=== PATIENT | female | born 1950 | race Caucasian/White ===

== ENCOUNTER 2023-08-08 08:20 | Day surgery (SDC) | payer OTHER, SELFPAY ==
[2023-07-18 13:08] VITALS: BMI 26.8
[2023-07-18 13:21] LABS: % Basophils 0.4 % (0-2); % Eosinophils 0.7 % (0-6); % Immature Granulocytes 0.2 % (0-0.5); % Lymphocytes 22.9 % (20.5-51.1); % Monocytes 6.8 % (1.7-9.3); Absolute Eosinophils 0.1 10^3/uL (0-0.7); Absolute Lymphocytes 1.9 10^3/uL (1.2-3.4); Absolute Monocytes 0.6 10^3/uL (0.1-0.6); Absolute Neutrophils 5.6 10^3/uL (1.4-6.5); Hematocrit 41.5 % (37.0-47.0); Hemoglobin 14.1 g/dL (12.0-16.0); Mean Corpuscular Hgb 31.9 pg (27.0-31.0); Mean Corpuscular Volume 93.9 fL (81.0-99.0); Mean Platelet Volume 9.4 fL (7.4-10.4); Nucleated Red Blood Cells % 0 %; Platelet Count 241 10^3/uL (130-400); Red Blood Cell Count 4.42 10^6/uL (4.20-5.40); Red Cell Dist. Width 12.3 % (11.5-14.5); White Blood Cell Count 8.1 10^3/uL (4.8-10.8)
[2023-07-18 13:34] LABS: ALT (SGPT) 23 U/L (0-35); AST (SGOT) 27 U/L (14-36); Albumin 4.6 g/dl (3.5-5.0); Alkaline Phosphatase 82 U/L (38-126); Blood Urea Nitrogen 14 mg/dl (7-17); Calcium 9.6 mg/dl (8.4-10.2); Carbon Dioxide 27 mmol/L (22-30); Chloride 105 mmol/L (98-107); Estimated Creatinine Clearance 73 ml/min; Glucose 99 mg/dl (70-99); Potassium 4.7 mmol/L (3.5-5.1); Sodium 138 mmol/L (135-145); Total Bilirubin 0.9 mg/dl (0.2-1.3); Total Protein 6.9 g/dl (6.3-8.2); eGFR > 60.00
[2023-08-08 08:20] VITALS: BP 140/74
[2023-08-08 08:40] VITALS: BP 140/74
[2023-08-08 09:07] LABS: Glucose - Point of Care 133 mg/dl (70-99)
--- NOTE | 2023-08-08 11:47 | W.ICD.CONTRA ---
Post ICD/HAND EDGE BANDER-D
-
History of MN?: No
LV Function
Left ventricular function study result?: Ejection Fraction >/= 40%
ACEI/ARB/ARNI
Patient already on ACEI/ARB/ARNI: No
ACEI/ARB/ARNI Not Indicated: Left Ventricular EF >/= 40%
Beta-Eva
Patient already on Beta Eva: Yes
--- NOTE | 2023-08-08 12:53 | ITS.CL.ICD ---
M[employer]gage [employer] Specialist - ICD
Implantable Cardioverter Defibrillator
Procedure Report:
Dual Chamber Implantable Cardioverter Defibrillator Generator Change:
Ms. Pete is a very pleasant 73 years old woman with hx of VT s/p a dual chamber ICD at the end of battery life is here for generator change.
Indications: Ventricular tachycardia s/p dual chamber ICD now with elective replacement indicator
Date of the Procedure: 08/08/2023
Pre-Operative Diagnosis: Ventricular tachycardia
Post-Operative Diagnosis: Ventricular tachycardia
Procedure Performed: DUAL CHAMBER IMPLANTABLE CARDIOVERTER DEFIBRILLATOR GENERATOR CHANGE
Performing Physician:
J Luis Burns MD
Assistants:
EP staff
Anesthesia:
See anesthesia records
Detailed Description of the Procedure:
The patient was identified using hospital identification and informed consent obtained for the procedure. The risks were explained including, but not limited to: Bleeding, infection, arrhythmia, stroke, vascular/cardiac/lung puncture, surgery,
pacemaker dependency/device malfunction. All questions were answered.
The patient was brought to the electrophysiology laboratory in stable condition in fasting state. Continuous electrocardiographic and hemodynamic monitoring was initiated.
The initial rhythm was normal sinus rhythm. The device tachy-therapies were turned off.
The procedure site was meticulously prepared with surgical scrub and allowed to dry with no pooling. Sterile draping was applied to cover the procedure site. The image intensifier was draped with sterile bag and positioned over the patient.
The left infraclavicular region was prepped and draped in the usual sterile fashion. Local anesthesia was administered subcutaneously using 1% lidocaine / bupivacaine. The incision was made on the previous scar. The old ICD generator was accessed
and the adhesions were removed with care to avoid damage to the leads. The ICD capsule was cut to access the generator. The old device was attached to the underlying fascia with a suture and the suture was cut to free the device. It was removed from
the body. The Weitlaner retractor was placed in the incision and used as access to skin for unipolar pacing.
The old PPM pacing lead was used for pacing and plugged into the generator. It was removed and promptly used for pacing via unipolar fashion.
The leads were gradually removed and placed in the respective locations in the newer generator.
The ICD lead was then placed in the new generator without any significant pause noted.
The old pocket and capsule was modified and the excessive scar was removed. A TYRX absorbable antibacterial envelope was used and the device was placed in the pouch with leads and placed in the modified pocket. There was excellent sensing, pacing,
and impedance from the leads.�Bovie cautery, and antibiotics were used.
The wound was irrigated thoroughly with antibiotic solution and closed in 3 layers using 2-0, VLoc sutures followed by two layers of 4-0 V loc sutures. Steri-Strips and a bandage were applied externally.�
The device was turned back on to initial setting.
Procedure End:
The procedure was tolerated well. A bandage was applied to the incision area.
Estimated Blood loss:
1 cc
Fluoro time:
0 min
Specimens Removed:
No cultures and no specimens were obtained. No intraoperative pathology was identified.
Urine output:
None
Packs / Drains/ Tubes:
None
Instrument / Sponge Count Correct:
Yes
Complications of the Procedure:
None
Condition of Patient at Time of Transfer:
Hemodynamically stable with no neurological or vascular compromise.
Device information:�
Generator: Sentrix; Model: [id number]; Serial #[id number]
Explanted device: [id number]- [id number]: Serial # [id number]�
Atrial Lead: Medtronic; Model: 5554; Serial # [id number] (Implanted 05/05/1998)�
Measured data in the right atrium was sensing of 1.3 mV of AF waves, impedance of 800 ohms and threshold of 1.0 V at 0.4ms�
RV Lead: Medtronic; Model: 6944; Serial # [id number] (Implanted 06/09/2013)�
Measured data in the RV lead was sensing of 11.7 mV, impedance of 460ohms and threshold of 1.0 V at 0.4ms�
PROGRAMMING PARAMETERS:�
Jam parameter settings were DDD 60-110 bpm. �
�����������
Tachy parameter settings:
����������� SVT discrimination: On
����������� AF/AFl: On
����������� SVT limit: 260 msec
����������� VT zone:
����������������������� Fast VT: 181-222 bpm --> ATP then CV
����������������������� VF: > 222bpm --> Shock x6 (ATP before and during)
�����������
Summary:
Successful generator change of dual chamber [place] /[employer] ICD pacemaker
Results/Recommendations:
1. Please provide patient with adequate pain control�
Instructions to be given to patient:�
- Please follow up with [facility] at [address] [place] [address] ([phone]) to get your wound checked within 7 days of your discharge.
- Do not wet incision site until after it is evaluated at cardiology clinic. No showers until then. Sponge baths are OK.�
- Allow 'steri strips' to fall off on their own�
- Do not lift left elbow above shoulder, particularly with sudden jerking movements, for 1 month�
- Do not lift anything weighing more than 5 pounds with the left arm for 1 month�
- If you notice any fevers, shortness of breath, lightheadedness, chest pain, or worsening swelling in the wound site, please contact the arrhythmia clinic, contact your barn boss, or present to the hospital for evaluation.�
J Luis Burns MD
Electrophysiology
[2023-08-08 13:08] VITALS: BP 119/64
[2023-08-08 13:20] VITALS: BP 131/74
[2023-08-08 13:36] VITALS: BP 144/98
[2023-08-08 13:50] VITALS: BP 116/64
== END 2023-08-08 14:00 | disposition home or self-care (01) ==
LOC: CATH 08:20
PROVIDERS: ATTENDING PHYSICIAN Internal Medicine Cardiovascular Disease; FAMILY PHYSICIAN Family Medicine
DX: Z45.02 Encounter for adjustment and management of automatic implantable cardiac defibrillator (principal); I47.20 Ventricular tachycardia, unspecified; I10 Essential (primary) hypertension; E78.5 Hyperlipidemia, unspecified; G47.33 Obstructive sleep apnea (adult) (pediatric); E11.9 Type 2 diabetes mellitus without complications; F90.9 Attention-deficit hyperactivity disorder, unspecified type; Z79.84 Long term (current) use of oral hypoglycemic drugs
CPT/HCPCS: 33263; 33228; 36415; 80053; 82962; 85025; 93005; C1721

== ENCOUNTER → 2024-07-28 14:25 | Outpatient (REF) | payer OTHER, SELFPAY | LOC: HWRAD 14:25 | PROVIDERS: ATTENDING PHYSICIAN Urology; FAMILY PHYSICIAN Family Medicine | DX: N20.0 Calculus of kidney (principal) | CPT/HCPCS: 74176 ==

== ENCOUNTER → 2024-11-09 08:08 | Outpatient (REF) | payer OTHER, SELFPAY | LOC: HWRAD 08:08 | PROVIDERS: ATTENDING PHYSICIAN Family Medicine | DX: M85.80 Other specified disorders of bone density and structure, unspecified site (principal); Z78.0 Asymptomatic menopausal state | CPT/HCPCS: 77080 ==

== ENCOUNTER → 2025-02-16 10:25 | Outpatient (REF) | payer OTHER, SELFPAY | LOC: HWRAD 10:25 | PROVIDERS: ATTENDING PHYSICIAN Family Medicine | DX: M54.16 Radiculopathy, lumbar region (principal); M99.03 Segmental and somatic dysfunction of lumbar region; M85.80 Other specified disorders of bone density and structure, unspecified site | CPT/HCPCS: 72110 ==

== ENCOUNTER → 2025-06-25 13:50 | Outpatient (REF) | payer OTHER, SELFPAY | LOC: RAD 13:50 | PROVIDERS: ATTENDING PHYSICIAN Family Medicine | DX: J11.1 Influenza due to unidentified influenza virus with other respiratory manifestations (principal); J18.1 Lobar pneumonia, unspecified organism | CPT/HCPCS: 71046 ==

== ENCOUNTER 2025-06-26 19:51 | Inpatient (IN) | payer OTHER, SELFPAY ==
[2025-06-26] VITALS (10 sets, daily range): BP systolic 98–137; BP diastolic 44–77; BMI 24.6
[2025-06-26 15:12] LABS: COVID-19 Antigen Negative (Negative)
[2025-06-26 15:29] LABS: ALT (SGPT) 16 U/L (0-35); AST (SGOT) 23 U/L (14-36); Albumin 4.6 g/dl (3.5-5.0); Alkaline Phosphatase 119 U/L (38-126); Blood Urea Nitrogen 22 mg/dl (7-17); Calcium 10.3 mg/dl (8.4-10.2); Carbon Dioxide < 5 mmol/L (22-30); Chloride 105 mmol/L (98-107); Glucose 221 mg/dl (70-99); Potassium 4.9 mmol/L (3.5-5.1); Sodium 138 mmol/L (135-145); Total Protein 7.7 g/dl (6.3-8.2); eGFR > 60.00
[2025-06-26 15:32] LABS: Absolute Neutrophils -Man Diff 9.2 10^3/uL (1.4-6.5); Hematocrit 47.2 % (37.0-47.0); Hemoglobin 15.7 g/dL (12.0-16.0); Mean Corp Hgb Conc. 33.3 g/dL (33.0-37.0); Mean Corpuscular Volume 92.7 fL (81.0-99.0); Red Cell Dist. Width 13.2 % (11.5-14.5)
[2025-06-26 15:33] LABS: Normal RBC Morphology Yes; Platelets Checked Yes; Total Cells Counted 100
--- NOTE | 2025-06-26 16:53 | ED.GENMED ---
History of Present Illness
<Yessenia Fernandez PA-C - Last Filed: 06/26/25 21:07>
General
Chief Complaint: Cold/Flu/URI Symptoms
Source: patient and spouse
Exam Limitations: none
Time Seen by Provider: 06/26/25 16:42
History of Present Illness
History of Present Illness:
75yoF with a history of type 2 diabetes, ventricular tachycardia with AICD in place, hypertension, hyperlipidemia presenting with her for evaluation of flu-like symptoms. Patient recently returned home from a cruise to the [facility]. Four
days ago, she started to become sick with fevers and cough. Symptoms started to worsen 2 days ago with vomiting and weakness. She states she is barely able to keep anything down. She was seen by her PCP yesterday and tested positive for
influenza. She had an outpatient chest x-ray which showed findings suggesting right lower lobe pneumonia. She was prescribed cefuroxime by her PCP today and took 1 dose thus far. She reports exertional dyspnea but denies any chest pain.
Phy Exam
<Yessenia Fernandez PA-C - Last Filed: 06/26/25 21:07>
Physical Exam
Physical Exam:
Patient ill-appearing with dry mucous membranes
General Physical Exam
General Presentation: moderate distress
General Skin: warm and dry
General Habitus: elderly
General Mental: alert
General Hydration: dry mucous membranes
ENT Exam
ENT Exam: normocephalic
Cardiovascular Exam
Cardiovascular Exam: regular rate/rhythm and no edema
Pulmonary Exam
Pulmonary Exam: no respiratory distress, no rales, chest non tender, no rhonchi and other (Rales in R lung base)
Gastrointestinal Exam
Gastrointestinal Exam: non tender, soft and non distended
Neurological Exam
Neurological Exam: alert
Jakob Coma Scale
Eye Opening: Spontaneous
Verbal Response: Oriented
Motor Response: Obeys Commands
GCS Total Score: 15
Skin Exam
Skin Exam: warm/dry
Psychiatric Exam
Psychiatric Exam: normal mood/affect
Course
<Yessenia Fernandez PA-C - Last Filed: 06/26/25 21:07>
Orders/Labs/Results
Orders:
Orders
06/26/25 14:49
COVID-19 Antigen Urgent
Source: Nasal Swab
Influenza A+B Rapid Molecular Urgent
HAO Source: Nasal Swab
Specimen Description:
06/26/25 14:54
B-Hydroxybutyrate Urgent
Comment: ADDON
Complete Blood Count/With Diff Urgent
Comprehensive Metabolic Panel Urgent
Lactic Acid Urgent
Manual Differential Urgent
06/26/25 Dinner
NPO
Allow oral meds: Yes
Allow clear liquids: Sips of Clears
06/26/25 16:53
Electrocardiogram (*1) Urgent
Reason for Study: Shortness of Breath
EKG- Treatment ONCE
0.9% Sodium Chloride 1000 ml [Nss] 2,000 ml IV BOLUS
06/26/25 17:02
Troponin I Urgent
Venous Blood Gas Urgent
%Oxygen/Room Air: room air
Blood Culture Q30M
HAO Source: Blood/Venous
Specimen Description:
06/26/25 17:34
Blood Culture Q30M
HAO Source: Blood/Venous
Specimen Description:
06/26/25 18:28
Bedside Glucose- Treatment Q1H
IV Insert/Care/Rem.- Treatment PRN
06/26/25 18:29
Urinalysis Reflex To Culture Urgent
Date Specimen was Collected: 06/26/25
Time Specimen was Collected: 17:36
Urine Microscopic Reflex Cult Urgent
06/26/25 18:35
CefTRIAXone [Rocephin] 1,000 mg IV NOW STA
06/26/25 19:00
Dextrose 5%/0.45%Sodchl 1000ML [D5/0.45%NaCl] 1,000 ml IV 200 mls/hr
06/26/25 19:06
0.9% Sodium Chloride 1000 ml [Nss] 1,000 ml IV BOLUS
06/26/25 19:12
Reg Insulin 100 Units/100 ml [Novolin R Insulin Infusion] 100 units in 100 ml IV NOW
06/26/25 19:19
Basic Metabolic Panel Q2H
06/26/25 19:32
Admit/Transfer Patient As Directed
Co-Sign Provider:
Level of Care: Inpatient admission
Assign to:: ICU
Physician / Group: Antonio
Diagnosis: DKA, Pneumonia, Influenza
Reason for Hospitalization: DKA, Pneumonia, Influenza
Expected length of stay greater than two midnights?: Yes
ELOS- Estimated Length of Stay in days: 2
I certify the patient meets the requirements for IP care: Yes
Sotalol [Betapace] 80 mg PO NOW STA
PRN Pain Medication Management As Directed
May give lesser potent ordered pain med per pt: Yes
preference::
Protocol:: Medication orders for pain may be administered in a
manner that supports deferring to patient preference
when the pt is:
- Requesting an ordered lesser potent pain medication.
Least to most potent pain medications are defined
as: acetaminophen < NSAID < tramadol < opioids
(morphine, oxycodone, hydromorphone).
- Requesting a lesser dose of the same medication IF
ORDERED.
- Requesting a less intrusive route of administration
if both routes are prescribed by the provider (PO <
IV).
06/26/25 19:33
Code Status As Directed
Resuscitation Status: Full Code
06/26/25 19:42
Oseltamivir Phosphate [Tamiflu] 30 mg PO NOW STA
06/26/25 20:39
Basic Metabolic Panel Q2H
06/26/25 21:01
KCl 20 Meq/D5.45%Sodchl 1000ML [D5/0.45%NSS with KCL 20 MEQ] 20 meq in 1,000 ml IV 200 mls/hr
Metoclopramide [Reglan] 10 mg IV Q6HPRN PRN
Oseltamivir Phosphate [Tamiflu] 30 mg PO BID
Reg Insulin 100 Units/100 ml [Novolin R Insulin Infusion] 100 units in 100 ml IV PER PROTOCOL
Initial dose in units/hr, then titrate:: 2
Sotalol [Betapace] 80 mg PO BID
06/26/25 21:01
MRSA Screen Routine
HAO Source: Nose
Specimen Description:
Activity As Directed
Activity Level: With Assistance
Bedside Glucose Monitoring As Directed
Frequency: Q1H
Intake/ Output As Directed
Frequency: Per unit guidelines
Notify MD As Directed
Notify physician if: Nurse to contact provider when glucose reaches 250 to obtain orders for D5 0.45 NaCl
Vital Signs As Directed
Frequency: Per unit guidelines
Pulse Ox/spot Check [RESP] Routine
Quantity: 1
Special Instructions: pulse oximetry on admission then every shift if on oxygen.
call if oxygen saturation less than __ %
DX Deep Vein Thrombosis Video Routine
06/26/25 22:00
Atorvastatin [Lipitor] 40 mg PO HS
06/27/25 00:00
Basic Metabolic Panel Q4
06/27/25 04:00
Basic Metabolic Panel Q4
06/27/25 06:00
Complete Blood Count/No Diff IN AM
06/27/25 08:00
Basic Metabolic Panel Q4
Aspirin Chewable [Low Strength Aspirin] 81 mg PO DAILY
06/27/25 12:00
Basic Metabolic Panel Q4
06/27/25 16:00
Basic Metabolic Panel Q4
06/27/25 18:00
CefTRIAXone [Rocephin] 1,000 mg IV Q24H
Enoxaparin Sodium [Lovenox] 40 mg SC QPM
06/27/25 20:00
Basic Metabolic Panel Q4
Abnormal Lab Results
06/26/25 06/26/25 06/26/25
14:54 17:02 18:29
WBC 11.3 H 10^3/uL
(4.8-10.8)
Hct 47.2 H %
(37.0-47.0)
Abs Neuts (Manual) 9.2 H 10^3/uL
(1.4-6.5)
Band Neutrophils 19 H %
(0-3)
Lymphocytes (Manual) 9 L %
(20-51)
VBG pH 7.14 L*
(7.32-7.43)
VBG pCO2 30 L mmHg
(35-48)
VBG pO2 51 H mmHg
(30-50)
VBG HCO3 10.2 L mmol/L
(22-27)
Chloride
Carbon Dioxide < 5 L* mmol/L
(22-30)
BUN 22 H mg/dl
(7-17)
Glucose 221 H mg/dl
(70-99)
Calcium 10.3 H mg/dl
(8.4-10.2)
Urine Ketones 3+ A
(Negative)
Ur Occult Blood Reflex 2+ A
(Negative)
Urine Bacteria (Reflex) Few A
(Negative)
Urine Glucose 4+ A
(Negative)
Urine Albumin (Reflex) 2+ A
(Neg - Trace)
B-Hydroxybutyrate 8.76 H mmol/L
(0.02-0.27)
06/26/25
19:19
WBC
Hct
Abs Neuts (Manual)
Band Neutrophils
Lymphocytes (Manual)
VBG pH
VBG pCO2
VBG pO2
VBG HCO3
Chloride 114 H mmol/L
(98-107)
Carbon Dioxide < 5 L* mmol/L
(22-30)
BUN 20 H mg/dl
(7-17)
Glucose 160 H mg/dl
(70-99)
Calcium 8.3 L D mg/dl
(8.4-10.2)
Urine Ketones
Ur Occult Blood Reflex
Urine Bacteria (Reflex)
Urine Glucose
Urine Albumin (Reflex)
B-Hydroxybutyrate
06/26/25 14:54
06/26/25 19:19
Vital Signs
Initial and Last Documented VS:
Initial Vital Signs
Temp Pulse Resp BP Pulse Ox
97.5 F 74 16 137/77 92
06/26/25 14:45 06/26/25 14:45 06/26/25 14:45 06/26/25 14:45 06/26/25 14:45
Last Documented Vital Signs
Temp Pulse Resp BP Pulse Ox
97.5 F 85 24 129/47 95
06/26/25 14:45 06/26/25 21:00 06/26/25 21:00 06/26/25 21:00 06/26/25 21:00
<Erica Frias MD - Last Filed: 06/26/25 18:50>
Orders/Labs/Results
Orders:
Orders
06/26/25 14:49
COVID-19 Antigen Urgent
Source: Nasal Swab
Influenza A+B Rapid Molecular Urgent
HAO Source: Nasal Swab
Specimen Description:
06/26/25 14:54
B-Hydroxybutyrate Urgent
Comment: ADDON
Complete Blood Count/With Diff Urgent
Comprehensive Metabolic Panel Urgent
Lactic Acid Urgent
Manual Differential Urgent
06/26/25 Dinner
NPO
Allow oral meds: Yes
Allow clear liquids: Sips of Clears
06/26/25 16:53
Electrocardiogram (*1) Urgent
Reason for Study: Shortness of Breath
EKG- Treatment ONCE
0.9% Sodium Chloride 1000 ml [Nss] 2,000 ml IV BOLUS
06/26/25 17:02
Troponin I Urgent
Venous Blood Gas Urgent
%Oxygen/Room Air: room air
Blood Culture Q30M
HAO Source: Blood/Venous
Specimen Description:
06/26/25 17:34
Blood Culture Q30M
HAO Source: Blood/Venous
Specimen Description:
06/26/25 18:28
Bedside Glucose- Treatment Q1H
IV Insert/Care/Rem.- Treatment PRN
06/26/25 18:29
Urinalysis Reflex To Culture Urgent
Date Specimen was Collected: 06/26/25
Time Specimen was Collected: 17:36
Urine Microscopic Reflex Cult Urgent
06/26/25 18:35
CefTRIAXone [Rocephin] 1,000 mg IV NOW STA
06/26/25 19:00
Dextrose 5%/0.45%Sodchl 1000ML [D5/0.45%NaCl] 1,000 ml IV 200 mls/hr
06/26/25 19:06
0.9% Sodium Chloride 1000 ml [Nss] 1,000 ml IV BOLUS
06/26/25 19:12
Reg Insulin 100 Units/100 ml [Novolin R Insulin Infusion] 100 units in 100 ml IV NOW
06/26/25 19:19
Basic Metabolic Panel Q2H
06/26/25 19:32
Admit/Transfer Patient As Directed
Co-Sign Provider:
Level of Care: Inpatient admission
Assign to:: ICU
Physician / Group: Antonio
Diagnosis: DKA, Pneumonia, Influenza
Reason for Hospitalization: DKA, Pneumonia, Influenza
Expected length of stay greater than two midnights?: Yes
ELOS- Estimated Length of Stay in days: 2
I certify the patient meets the requirements for IP care: Yes
Sotalol [Betapace] 80 mg PO NOW STA
PRN Pain Medication Management As Directed
May give lesser potent ordered pain med per pt: Yes
preference::
Protocol:: Medication orders for pain may be administered in a
manner that supports deferring to patient preference
when the pt is:
- Requesting an ordered lesser potent pain medication.
Least to most potent pain medications are defined
as: acetaminophen < NSAID < tramadol < opioids
(morphine, oxycodone, hydromorphone).
- Requesting a lesser dose of the same medication IF
ORDERED.
- Requesting a less intrusive route of administration
if both routes are prescribed by the provider (PO <
IV).
06/26/25 19:33
Code Status As Directed
Resuscitation Status: Full Code
06/26/25 19:42
Oseltamivir Phosphate [Tamiflu] 30 mg PO NOW STA
06/26/25 20:39
Basic Metabolic Panel Q2H
06/26/25 21:01
KCl 20 Meq/D5.45%Sodchl 1000ML [D5/0.45%NSS with KCL 20 MEQ] 20 meq in 1,000 ml IV 200 mls/hr
Metoclopramide [Reglan] 10 mg IV Q6HPRN PRN
Oseltamivir Phosphate [Tamiflu] 30 mg PO BID
Reg Insulin 100 Units/100 ml [Novolin R Insulin Infusion] 100 units in 100 ml IV PER PROTOCOL
Initial dose in units/hr, then titrate:: 2
Sotalol [Betapace] 80 mg PO BID
06/26/25 21:01
MRSA Screen Routine
HAO Source: Nose
Specimen Description:
Activity As Directed
Activity Level: With Assistance
Bedside Glucose Monitoring As Directed
Frequency: Q1H
Intake/ Output As Directed
Frequency: Per unit guidelines
Notify MD As Directed
Notify physician if: Nurse to contact provider when glucose reaches 250 to obtain orders for D5 0.45 NaCl
Vital Signs As Directed
Frequency: Per unit guidelines
Pulse Ox/spot Check [RESP] Routine
Quantity: 1
Special Instructions: pulse oximetry on admission then every shift if on oxygen.
call if oxygen saturation less than __ %
DX Deep Vein Thrombosis Video Routine
06/26/25 22:00
Atorvastatin [Lipitor] 40 mg PO HS
06/27/25 00:00
Basic Metabolic Panel Q4
06/27/25 04:00
Basic Metabolic Panel Q4
06/27/25 06:00
Complete Blood Count/No Diff IN AM
06/27/25 08:00
Basic Metabolic Panel Q4
Aspirin Chewable [Low Strength Aspirin] 81 mg PO DAILY
06/27/25 12:00
Basic Metabolic Panel Q4
06/27/25 16:00
Basic Metabolic Panel Q4
06/27/25 18:00
CefTRIAXone [Rocephin] 1,000 mg IV Q24H
Enoxaparin Sodium [Lovenox] 40 mg SC QPM
06/27/25 20:00
Basic Metabolic Panel Q4
Abnormal Lab Results
06/26/25 06/26/25 06/26/25
14:54 17:02 18:29
WBC 11.3 H 10^3/uL
(4.8-10.8)
Hct 47.2 H %
(37.0-47.0)
Abs Neuts (Manual) 9.2 H 10^3/uL
(1.4-6.5)
Band Neutrophils 19 H %
(0-3)
Lymphocytes (Manual) 9 L %
(20-51)
VBG pH 7.14 L*
(7.32-7.43)
VBG pCO2 30 L mmHg
(35-48)
VBG pO2 51 H mmHg
(30-50)
VBG HCO3 10.2 L mmol/L
(22-27)
Chloride
Carbon Dioxide < 5 L* mmol/L
(22-30)
BUN 22 H mg/dl
(7-17)
Glucose 221 H mg/dl
(70-99)
Calcium 10.3 H mg/dl
(8.4-10.2)
Urine Ketones 3+ A
(Negative)
Ur Occult Blood Reflex 2+ A
(Negative)
Urine Bacteria (Reflex) Few A
(Negative)
Urine Glucose 4+ A
(Negative)
Urine Albumin (Reflex) 2+ A
(Neg - Trace)
B-Hydroxybutyrate 8.76 H mmol/L
(0.02-0.27)
06/26/25
19:19
WBC
Hct
Abs Neuts (Manual)
Band Neutrophils
Lymphocytes (Manual)
VBG pH
VBG pCO2
VBG pO2
VBG HCO3
Chloride 114 H mmol/L
(98-107)
Carbon Dioxide < 5 L* mmol/L
(22-30)
BUN 20 H mg/dl
(7-17)
Glucose 160 H mg/dl
(70-99)
Calcium 8.3 L D mg/dl
(8.4-10.2)
Urine Ketones
Ur Occult Blood Reflex
Urine Bacteria (Reflex)
Urine Glucose
Urine Albumin (Reflex)
B-Hydroxybutyrate
06/26/25 14:54
06/26/25 19:19
Vital Signs
Initial and Last Documented VS:
Initial Vital Signs
Temp Pulse Resp BP Pulse Ox
97.5 F 74 16 137/77 92
06/26/25 14:45 06/26/25 14:45 06/26/25 14:45 06/26/25 14:45 06/26/25 14:45
Last Documented Vital Signs
Temp Pulse Resp BP Pulse Ox
97.5 F 85 24 129/47 95
06/26/25 14:45 06/26/25 21:00 06/26/25 21:00 06/26/25 21:00 06/26/25 21:00
<Yessenia Fernandez PA-C - Last Filed: 06/26/25 21:07>
MDM/Problems Addressed
Differential Diagnosis Includes:
75yoF here with vomiting and weakness. Tested positive for flu yesterday and started on abx for PNA seen on outpatient CXR. VSS. Patient ill appearing with extremely dry mucous membranes. Rales noted to R lung base. Differential diagnosis includes:
influenza, pneumonia, dehydration, PAVAN
Initial ED plan: Lab work obtained in triage shows severe metabolic acidosis with bicarb <5. Glucose 221 although patient is on Jardiance which can cause euglycemic DKA. Will check VBG, beta hydroxybutyrate, blood cultures, and UA. 2L NS bolus
ordered.
<Yessenia Fernandez PA-C - Last Filed: 06/26/25 21:07>
*Pulse Oximetry
SaO2: 95
Oxygen Mode of Delivery: Room air
Patient hypoxic: no
*EKG
Interpreted by ED Provider?: Yes
EKG Intrepretation Date: 06/26/25
Heart Rate: 79
Rate: normal
Rhythm: sinus
[place]: normal axis
Interval: normal interval
QRS Pattern: normal QRS
Ischemia: non-specific ST changes
*Critical Care Note
Total Time (30-74mins, 75-104mins- exclusive of procedures): 35
<Yessenia Fernandez PA-C - Last Filed: 06/26/25 21:07>
Update Note
Update Note:
VBG consistent with metabolic acidosis with venous pH is 7.14. Serum ketones positive. Patient initiated on an insulin drip per DKA protocol. Maintenance fluids with D5 1/2 NS also ordered as well as Rocephin. Patient will require ICU admission.
ED Attending Note
<Yessenia Fernandez PA-C - Last Filed: 06/26/25 21:07>
-
Portions of this chart may have been created with voice recognition software.� Occasional wrong word or��sound alike� substitutions may have occurred due to the inherent limitations of voice recognition software.
<Erica Frias MD - Last Filed: 06/26/25 18:50>
ED Attending Note
Patient seen and examined by attending physician: Yes
I performed the substantive portion of visit, reviewed & personally made and approve the management plan that is documented in note by myself or DARWIN.: Yes
ED Attending Note:
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 She describes anorexia, vomiting, fatigue, and on and off fever. Her PCP diagnosed her with influenza yesterday she
also had a chest x-ray at that time which is suggestive of a right lower lobe infiltrate. She took 1 dose of the prescribed antibiotic and continues to feel unwell. On exam, patient is awake, alert but fatigued appearing. She is lucid. No
respiratory distress. Workup here consistent with right lower lobe pneumonia as noted on chest x-ray, DKA, nearly euglycemic, which would be consistent with patient's Jardiance use, influenza, dehydration. Patient will be aggressively rehydrated,
IV insulin, antibiotics, ICU admission, etc.
Discharge Plan
Departure
Patient Disposition: Admit
Date of Disposition: 06/26/25
Time of Disposition: 18:57
Presentation/result/management discussed w/ accepting MD/DO: Hospitalist
Discharge Problem:
Influenza A, Right lower lobe pneumonia, Diabetic ketoacidosis
Interventions
Interventions:
*General Assessment Last Done: 06/26/25 16:22
*Neglect/Abuse Screening Last Done: 06/26/25 14:45
*ED Influenza Vaccine History Last Done: 06/26/25 16:22
[facility] Fall Risk Assessment Tool Last Done: 06/26/25 16:22
*Risk Screen - Suicide (C-SSRS) Last Done: 06/26/25 14:45
*Nursing Disposition Last Done: 06/26/25 19:50
ED- Pulmonary Assessment Last Done: 06/26/25 16:22
Discharge Date and Time
Discharge Date/Time: 06/26/25 19:50
[2025-06-26] MEDS: NSS 2000 IV (17:04)
[2025-06-26 17:12] LABS: Venous Blood Gas B.E. -17.5 mmol/L (-4 to +4); Venous Blood Gas O2 Sat % 78.0 %
[2025-06-26 17:53] LABS: Troponin I < 0.012 ng/ml
[2025-06-26 18:37] LABS: Urine Character Clear (Clear)
[2025-06-26 18:48] LABS: Urine Red Blood Cell 0-2 /HPF (0-2); Urine White Cell 0-2 /HPF (0-5)
[2025-06-26] MEDS: ROCEPHIN 1000 MG IV (18:56)
[2025-06-26] MEDS: NSS 1000 IV (19:09)
[2025-06-26] MEDS: D5/0.45%NACL 1000 IV (19:10)
--- NOTE | 2025-06-26 19:18 | HPS.HSE ---
Family Physician
-
Family Physician: Arya Valerio
Chief Complaint
-
Flu
History of Present Illness
This is a 75-year-old female with past medical history significant for type 2 diabetes, nonsustained VT status post AICD, hypertension, hyperlipidemia who presents to the emergency department for evaluation for flulike symptoms.
Patient had recently returned from to the [facility] and began to have symptoms about 4 days ago. Symptoms worsened over the last 2 days with vomiting weakness and fevers and cough. She is unable to keep anything down. She was seen by PCP
yesterday and tested positive for flu. On outpatient x-ray she was a right lower lobe opacity. She was prescribed cefuroxime and has taken 1 dose but continues to have exertional dyspnea. She is not having any chest pain.
On arrival in the emergency department she was afebrile, blood pressure was 112/4 with a pulse rate of 74 and oxygen saturation of 95% on room air. ECG shows a normal sinus rhythm rate of 79
She had abnormal labs consistent with DKA. CBC was unremarkable, she does have pH of 7.14 only venous gas with pCO2 of 30 and a bicarb of 10. However on the chemistries her bicarb is 5. Anion gap is 26. Beta-hydroxybutyrate is 8.7. Her UA does
show glucose and ketonuria.
Patient will be admitted to ICU for DKA
Medical History
Past Medical History
Past Medical History: Reports Arrhythmia (History of heart block status post PPM, nonsustained VT status post PPM AICD, recent episode of VT now on sotalol ), HTN and NIDDM
Past Surgical History: Reports Urological
Social History
Tobacco: Non-smoker
Alcohol: None
Drug: None
Family History
Family History: Not pertinent
Allergies / Home Medications
Allergies reflects when Allergies were last updated in [facility].
Home Medications with original date entered in [facility]
Allergy/Medication List:
Allergies
Allergy/AdvReac Type Severity Reaction Status Date / Time
No Known Allergies Allergy Unverified 08/08/23 08:57
Home Medications
Gluco Trust 1 tab PO HS 07/16/23
atorvastatin 40 mg tablet 40 mg PO HS 07/16/23
cholecalciferol (vitamin D3) 125 mcg (5,000 unit) tablet (Vitamin D3) 250 mcg PO DAILY 07/16/23
coQ10 (ubiquinol) 100 mg capsule 100 mg PO DAILY 07/16/23
ezetimibe 10 mg tablet 10 mg PO HS 07/16/23
progesterone micronized 200 mg capsule 200 mg PO HS 07/16/23
semaglutide 1 mg/dose (4 mg/3 mL) subcutaneous pen injector (Ozempic) 1 mg SC RUSHING 07/16/23
aspirin 81 mg chewable tablet 81 mg PO DAILY 08/08/23
docusate sodium 100 mg capsule (Colace) 100 mg PO DAILY 08/08/23
empagliflozin 25 mg tablet (Jardiance) 25 mg PO DAILY 08/08/23
prasterone (DHEA) 25 mg capsule (DHEA) 25 mg PO DAILY 08/08/23
metformin 500 mg tablet,extended release 24 hr 500 mg PO DAILY 06/26/25
sotalol 80 mg tablet 80 mg PO BID 06/26/25
Review of Systems
-
Constitutional: Reports Fatigue
EENT: Reports No Symptoms
Respiratory: Reports Cough
Cardiac: Reports No Symptoms
Abdomen/GI: Reports Nausea and Vomiting
: Reports No Symptoms
Musculoskeletal: Reports No Symptoms
Skin: Reports No Symptoms
Neurological: Reports No Symptoms
Endocrine: Reports No Symptoms
Hematologic/Lymphatic: Reports No Symptoms
Psych: Reports No Symptoms
Physical Exam
Vital Signs
Vital Signs
Temp Pulse Resp BP Pulse Ox
97.5 F 74 16 112/44 95
06/26/25 14:45 06/26/25 14:45 06/26/25 14:45 06/26/25 18:00 06/26/25 16:55
Physical Exam
General: Well Developed, Well Nourished and No Apparent Distress
HEENT: NormoCephalic, Moist mucous membranes and Atraumatic
Respiratory: Clear
Cardiac: S1/S2 and Regular Rhythm; No Murmur or Rub
GI: Soft, Non Tender, Non Distended and Normal Bowel Sounds; No Organomegaly
Rectal: Deferred by Provider
Musculoskeletal: No Clubbing, No Cyanosis and No Edema
Skin: No Rash
Neuro: Nonfocal/grossly intact
Laboratory Results
-
06/26/25 14:54
Laboratory Results
Lactic Acid 1.7 mmol/L (0.7-2.0) 06/26/25 14:54
Total Bilirubin 0.9 mg/dl (0.2-1.3) 06/26/25 14:54
AST 23 U/L (14-36) 06/26/25 14:54
ALT 16 U/L (0-35) 06/26/25 14:54
Alkaline Phosphatase 119 U/L (38-126) 06/26/25 14:54
Troponin I < 0.012 ng/ml 06/26/25 17:02
Data Reviewed
-
Diagnostic Radiology: Report Reviewed by me
Medical Tests (Nuc Med, Echo, EKG etc): Image Personally Visualized and interpreted
Lab Data: Labs Reviewed by me
Old Records: Reviewed
Impression/Plan
-
IMPRESSION:
Patient 75-year-old with a history of jzu-cubhvfa-ekscuozox diabetes who is currently on metformin, empagliflozin and Ozempic who also has a history of VT status post PPM AICD who presents to the emergency department after having 4 days of symptoms
and was diagnosed with influenza and pneumonia yesterday, unable to tolerate p.o. with nausea vomiting now found to be in known hyperglycemic DKA likely secondary to Jardiance
PLAN:
DKA -Non-hyperglycemic DKA secondary to Influenza/PNA infection diabetes and on empagliflozin
�Admit to ICU
� Will start the DKA protocol with D5 1/2NS and potassium
� Fingersticks every hour
� Chemistries every 4 hours
� N.p.o. except sips and medications
� Holding metformin and empagliflozin while in DKA and on insulin gtt
- A1c in am
Influenza or pneumonia -4 days of symptoms however currently in DKA and still symptomatic with pneumonia. Hemodynamically stable. Not hypoxic
� Will start on IV ceftriaxone
� Tamiflu 25 twice daily
� Supportive measures with pain control antipyretics and antiemetics
� IV fluids as per above
Arrhythmia�history of nonsustained VT status post PPM AICD currently in normal sinus rhythm
� Continue sotalol 80 mg twice daily
DVT prophylaxis�Lovenox subcu
CODE STATUS�full code
[2025-06-26] MEDS: NOVOLIN R INSULIN INFUSION 100 IV (19:41)
[2025-06-26 19:46] LABS: Blood Urea Nitrogen 20 mg/dl (7-17); Calcium 8.3 mg/dl (8.4-10.2); Carbon Dioxide < 5 mmol/L (22-30); Chloride 114 mmol/L (98-107); Estimated Creatinine Clearance 51 ml/min; Glucose 160 mg/dl (70-99); Potassium 4.5 mmol/L (3.5-5.1); Sodium 140 mmol/L (135-145); eGFR > 60.00
[2025-06-26] MEDS: TAMIFLU 30 MG PO (19:50)
[2025-06-26] MEDS: BETAPACE 80 MG PO (19:50)
[2025-06-26 20:38] LABS: Glucose - Point of Care 187 mg/dl (70-99)
--- NOTE | 2025-06-26 21:00 | PTCARENOTE ---
Pt. comes from ED w/ diagnosis of DKA, flu +, and pneumonia. Alert and oriented. Denies pain/discomfort. Afebrile. Heart rhythm sinus. Blood pressure normotensive. Currently on room air. Lungs sound diminished. NPO. Abdomen soft, non tender.
Voiding, purewick drainage device in place. Skin as documented. Discussed plan of care with patient. Insulin gtt infusing. Trending lab work. Vital signs stable at this time.
[2025-06-26 21:08] LABS: Glucose - Point of Care 155 mg/dl (70-99)
[2025-06-26 21:14] LABS: Blood Urea Nitrogen 18 mg/dl (7-17); Calcium 8.4 mg/dl (8.4-10.2); Carbon Dioxide < 5 mmol/L (22-30); Chloride 114 mmol/L (98-107); Estimated Creatinine Clearance 51 ml/min; Glucose 169 mg/dl (70-99); Potassium 3.8 mmol/L (3.5-5.1); Sodium 139 mmol/L (135-145); eGFR > 60.00
[2025-06-26] MEDS: BETAPACE PO (21:16)
[2025-06-26] MEDS: D5/0.45%NSS with KCL 20 MEQ 1000 IV (21:20)
[2025-06-26] MEDS: LIPITOR 40 MG PO (21:21)
[2025-06-26] MEDS: ZETIA 10 MG PO (21:25)
[2025-06-26 22:10] LABS: Glucose - Point of Care 142 mg/dl (70-99)
[2025-06-26 23:11] LABS: Glucose - Point of Care 154 mg/dl (70-99)
[2025-06-27] VITALS (21 sets, daily range): BP systolic 90–121; BP diastolic 24–91; BMI 24.9
--- NOTE | 2025-06-27 | PTCARENOTE ---
Pt. assessment unchanged. Continuing insulin infusion per protocol. Vital signs stable at this time.
[2025-06-27 00:10] LABS: Glucose - Point of Care 166 mg/dl (70-99)
[2025-06-27 00:43] LABS: Blood Urea Nitrogen 16 mg/dl (7-17); Calcium 8.5 mg/dl (8.4-10.2); Carbon Dioxide < 5 mmol/L (22-30); Chloride 115 mmol/L (98-107); Estimated Creatinine Clearance 68 ml/min; Glucose 169 mg/dl (70-99); Potassium 4.4 mmol/L (3.5-5.1); Sodium 139 mmol/L (135-145); eGFR > 60.00
[2025-06-27 01:11] LABS: Glucose - Point of Care 171 mg/dl (70-99)
[2025-06-27 02:09] LABS: Glucose - Point of Care 165 mg/dl (70-99)
[2025-06-27] MEDS: D5/0.45%NSS with KCL 20 MEQ 1000 IV ×3 (02:12→14:35)
[2025-06-27 03:11] LABS: Glucose - Point of Care 170 mg/dl (70-99)
[2025-06-27 04:11] LABS: Glucose - Point of Care 168 mg/dl (70-99)
--- NOTE | 2025-06-27 04:30 | PTCARENOTE ---
Pt. assessment remains unchanged. AM labs drawn. Vital signs stable at this time.
[2025-06-27 04:49] LABS: Hematocrit 34.8 % (37.0-47.0); Hemoglobin 12.0 g/dL (12.0-16.0); Mean Corp Hgb Conc. 34.5 g/dL (33.0-37.0); Mean Corpuscular Volume 92.3 fL (81.0-99.0); Platelet Count 181 10^3/uL (130-400); Red Cell Dist. Width 13.4 % (11.5-14.5)
[2025-06-27 04:54] LABS: INR 1.15; PT 14.8 Sec (11.4-14.6)
[2025-06-27 04:55] LABS: APTT 31.5 Sec (23.4-35.0)
[2025-06-27 05:11] LABS: Glucose - Point of Care 182 mg/dl (70-99)
[2025-06-27 05:31] LABS: Blood Urea Nitrogen 14 mg/dl (7-17); Calcium 8.3 mg/dl (8.4-10.2); Carbon Dioxide 9 mmol/L (22-30); Chloride 114 mmol/L (98-107); Estimated Creatinine Clearance 68 ml/min; Glucose 179 mg/dl (70-99); Magnesium 2.0 mg/dl (1.6-2.3); Potassium 4.0 mmol/L (3.5-5.1); Sodium 138 mmol/L (135-145); eGFR > 60.00
[2025-06-27 06:08] LABS: Glucose - Point of Care 174 mg/dl (70-99)
[2025-06-27 07:10] LABS: Glucose - Point of Care 198 mg/dl (70-99)
[2025-06-27] MEDS: TAMIFLU 30 MG PO (08:08)
[2025-06-27] MEDS: LOW STRENGTH ASPIRIN 81 MG PO (08:08)
[2025-06-27] MEDS: STERILE WATER FOR INJECTION 10 ML IV (08:09)
[2025-06-27] MEDS: VIBRAMYCIN 100 MG PO ×2 (08:09→19:51)
[2025-06-27] MEDS: ROCEPHIN 1000 MG IV (08:09)
[2025-06-27] MEDS: BETAPACE 80 MG PO ×2 (08:09→19:51)
[2025-06-27 08:16] LABS: Glucose - Point of Care 192 mg/dl (70-99)
[2025-06-27 08:51] LABS: Albumin 2.8 g/dl (3.5-5.0); Blood Urea Nitrogen 12 mg/dl (7-17); Calcium 8.6 mg/dl (8.4-10.2); Carbon Dioxide 14 mmol/L (22-30); Chloride 115 mmol/L (98-107); Estimated Creatinine Clearance 68 ml/min; Glucose 185 mg/dl (70-99); Potassium 3.8 mmol/L (3.5-5.1); Sodium 137 mmol/L (135-145); eGFR > 60.00
[2025-06-27 09:11] LABS: Glucose - Point of Care 172 mg/dl (70-99)
[2025-06-27] MEDS: REGLAN 10 MG IV (10:01)
--- NOTE | 2025-06-27 10:05 | W.PN.HOSP.TC ---
Addendum entered and electronically signed by Tarah Campa MD 06/27/25 15:22:
I saw and evaluated the patient independently. I reviewed and discussed the resident�s note and agree with findings and plan as documented by Dr. Wilson.
GENERAL: well developed, well nourished, female in no apparent distress
HEENT: NC/AT
HEART: regular rate and rhythm, +S1, +S2, pacer left anterior chest wall
LUNGS : rhonchi right lower lung field--no wheezing
ABDOM: soft, nontender, nondistended, + bowel sounds
EXT: no cyanosis, clubbing, or edema
NEUROLOGIC: grossly intact
DKA--pt with HX of type 2 DM controlled on oral meds-- Likely secondary to Influenza/PNA infection and on empagliflozin--elevated AGAP of 28 on arrival, now closed x 2--fluids adjusted--insulin drip now converted to SC lantus--consult DM CHILDHOOD DEVELOPMENT TEACHER--HGB
A1C 7.4--may be able to return to oral meds (metformin and Jardiance)--advance diet and place on SSI
Sepsis with Influenza A and RLL pneumonia--cont rocephin/doxy and tamiflu, increase to appropriate dosing
Leukocytosis; can also be secondary to DKA ; resolved
Arrhythmia�-history of nonsustained VT status post PPM AICD currently in normal sinus rhythm- Continue sotalol 80 mg twice daily
Hyperlipidemia- Continue atorvastatin/Zetia
DVT proph�Lovenox subcu
CODE STATUS�full code
Original Note:
Today's Communication/Plan
-
Diabetic diet
Insulin Lantus 12 units ; consult diabetic nurse practitioner
Continue IV ceftriaxone and p.o. Doxy
BMP Q4 today
Assessment / Plan
Assessment / Plan
75-year-old F with a history of hbx-oqroken-mzujxuchq diabetes who is currently on metformin, empagliflozin and Ozempic outpatient, history of VT status post PPM AICD presented after having 4 days of flu like symptoms and was diagnosed with
influenza and pneumonia on 06/26 by pcp.
#DKA Likely secondary to Influenza/PNA infection, diabetes and on empagliflozin
- Gap of 26 on arrival, BHB of 8.76, urine with ketones
- It is possible that there is a secondary non-anion gap acid base imbalance; we do not have ABG to confirm that
- Maintain DKA protocol with D5 1/2NS and potassium ; d/c IVf when able to tolkerate diet
- Fingersticks every hour
- BMP every 4 hours;
- diabetic diet when able to tolerate
- Holding metformin and empagliflozin for now
- A1c of 7.4
- Since the last 2 bmp's showed that the gap closed with blood sugar of less than 200 and bicarb of more than 15 now; stop insulin gtt.
- Patient received 29 units from the insulin gtt. ; start Lantus 12 units after discontinuing the insulin drip
- ISS
- Consult diabetes management nurse practitioner
#Sepsis with Influenza A and RLL pneumonia
#Leukocytosis; can also be secondary to DKA ; resolved
- Blood cultures pending
- Continue with IV ceftriaxone and p.o. doxy for now
- Increased Tamiflu to regular dose of 75 mg twice daily
- Supportive measures with pain control antipyretics and antiemetics
- Encourage use of incentive spirometer
CXR 06/27/2025: Increased right basilar airspace opacities suggestive of worsening right basilar pneumonia.
#Arrhythmia�history of nonsustained VT status post PPM AICD currently in normal sinus rhythm
- Continue sotalol 80 mg twice daily
# Hyperlipidemia
- Continue home atorvastatin 40 mg at bedtime
- Continue home Zetia 10 mg at bedtime
DVT prophylaxis�Lovenox subcu
CODE STATUS�full code
Anticipated Discharge: 24 - 48 hours
Subjective/Interval History
-
Date of Service: June 27, 2025
Afebrile, soft blood pressure readings. Complains of cough.
Objective Data
-
Labs:
Laboratory Results
06/27/25 06/27/25 06/27/25
04:09 08:05 11:59
WBC 7.7
Hgb 12.0 D
Hct 34.8 L
Plt Count 181
PT 14.8 H
INR 1.15
APTT 31.5
Sodium 138 137 137
Potassium 4.0 3.8 3.6
Chloride 114 H 115 H 114 H
Carbon Dioxide 9 L* 14 L* 17 L
BUN 14 12 12
Creatinine 0.6 0.5 L 0.5 L
Glucose 179 H 185 H 169 H
Calcium 8.3 L 8.6 8.6
Vital Signs:
Vital Signs
Temp Pulse Resp BP Pulse Ox
98 F 66 19 91/43 94
06/27/25 11:55 06/27/25 11:30 06/27/25 11:30 06/27/25 11:00 06/27/25 11:30
I&O
06/26/25 06/27/25 06/28/25
06:59 06:59 06:59
Intake Total 2017 1155 / 1155
Output Total 850 / 850
Balance 1168 / 1370 1155 / 1155
Review of Systems
-
History Source: Patient and Family
Constitutional: Denies Fever
Respiratory: Reports Cough; Denies Trouble Breathing
Cardiac: Denies Chest Pain
Abdomen/GI: Denies Abdominal Pain
Neuro: Reports No Symptoms
Physical Exam
-
General: Well Developed and No Apparent Distress
HEENT: Normocephalic
Respiratory: Rhonchi, Crackles and Non Labored Respirations
Cardiac: Regular Rhythm and S1/S2
GI: Soft and Nontender
Skin: Warm
Neuro: Awake, Alert and Oriented
Psych: Calm
Data Reviewed
-
Labs: Labs Reviewed by me, Discussed with Physician and Discussed with Patient
--- NOTE | 2025-06-27 10:05 | PTCARENOTE ---
Rec'd pt at 0700. Pt AAOx3, follows commands, [place]. Monitor SR. Lungs CTA, pox 93-95% RA. +BS, abd soft/nt. Vdg yellow urine. Insulin gtts infusing at 2units/hr per protocol, accuchecks Q1hr. 1000-pt c/o feeling nauseous, PRN Reglan given. at
bedside.
--- NOTE | 2025-06-27 10:08 | CON.INTV ---
Consultation
Consultation Request
Date/Time Consultation Requested: 06/26/2025
Date/Time Consultation Performed: 06/27/2025
Medical History
-
Chief Complaint: Vomiting
History of Present Illness:
Patient is a very pleasant 75 female with history of diabetes type 2, history of ventricular tachycardia status post AICD chronically on sotalol, who presented to the emergency room for evaluation for flulike symptoms. Patient reports recent trip
to [facility] and developed flulike symptoms about 4 days ago. Over the last couple of days patient developed vomiting and was unable to keep anything down. Patient tested positive for flu as outpatient and subsequently was prescribed cefuroxime
for possible right lower lobe opacity. Patient continued to have dyspnea and presented to emergency room. She was noted to be afebrile but noted to be in diabetic ketoacidosis along with worsening right lower lobe pneumonia. Patient was started
on IV fluids, antibiotics and insulin infusion, followed by admission to ICU. Coffee Blender consultation was requested for further management.
Past Medical History
Past Medical History: Reports Arrhythmia (History of heart block status post PPM, nonsustained VT status post PPM AICD, recent episode of VT now on sotalol ), HTN and NIDDM
Past Surgical History: Reports Urological
Social History
Tobacco: Non-smoker
Alcohol: None
Drug: None
Family History
Family History: Not pertinent
Allergies / Home Medications
Allergies / Home Medications
Allergies
Allergy/AdvReac Type Severity Reaction Status Date / Time
No Known Allergies Allergy Unverified 08/08/23 08:57
Home Medications
�Medication �Instructions �Recorded �Confirmed �Last Taken �Type
Gluco Trust 1 tab PO HS Supplement 07/16/23 08/08/23 08/07/23 21:00 History
atorvastatin 40 mg tablet 40 mg PO HS High Cholesterol 07/16/23 06/26/25 08/07/23 21:00 History
cholecalciferol (vitamin D3) 125 250 mcg PO DAILY Supplement 07/16/23 08/08/23 08/07/23 08:00 History
mcg (5,000 unit) tablet (Vitamin
D3)
coQ10 (ubiquinol) 100 mg capsule 100 mg PO DAILY Supplement 07/16/23 08/08/23 08/07/23 08:00 History
ezetimibe 10 mg tablet 10 mg PO HS High Cholesterol 07/16/23 06/26/25 08/07/23 21:00 History
progesterone micronized 200 mg 200 mg PO HS 07/16/23 08/08/23 08/07/23 21:00 History
capsule
semaglutide 1 mg/dose (4 mg/3 mL) 1 mg SC RUSHING Diabetes 07/16/23 06/26/25 08/04/23 History
subcutaneous pen injector (Ozempic)
aspirin 81 mg chewable tablet 81 mg PO DAILY Blood Clot 08/08/23 06/26/25 08/05/23 History
Prevention/Tx
docusate sodium 100 mg capsule 100 mg PO DAILY Constipation 08/08/23 08/08/23 08/07/23 08:00 History
(Colace)
empagliflozin 25 mg tablet 25 mg PO DAILY Diabetes 08/08/23 06/26/25 08/07/23 08:00 History
(Jardiance)
prasterone (DHEA) 25 mg capsule 25 mg PO DAILY Supplement 08/08/23 08/08/23 08/07/23 08:00 History
(DHEA)
metformin 500 mg tablet,extended 500 mg PO DAILY Diabetes 06/26/25 06/26/25 Unknown History
release 24 hr
sotalol 80 mg tablet 80 mg PO BID Blood Pressure 06/26/25 06/26/25 06/26/25 08:00 History
Review of Systems
-
Hematologic/Lymphatic: Other (All 14 systems reviewed and negative except as stated above in the history of present illness.)
Vitals / Labs / Diagnostic Testing
Vital Signs
Temp Pulse Resp BP Pulse Ox
97.8 F 67 18 95/51 94
06/27/25 08:07 06/27/25 09:30 06/27/25 09:30 06/27/25 09:00 06/27/25 09:30
Lab Data
06/27/25 04:09
Laboratory Results
06/27/25
04:09
PT 14.8 H
INR 1.15
APTT 31.5
Microbiology
06/26/25 14:49 Nasal Swab Influenza Types A & B ([facility]) - Final
Influenza A Positive, NAAT
Diagnostic Testing:
Physical Exam
-
HEENT: Normocephalic
Cardiovascular: S1/S2
Respiratory: Rhonchi (Right lower lobe)
GI: Soft
Neurology: Alert
Skin: Warm
General: Comfortable
Assessment
-
#1. DKA with h/o Type II DM
- Known history of diabetes managed with Jardiance and metformin
- Suspect DKA triggered by concomitant influenza A along with pneumonia. Blood sugar not particularly elevated likely related to Jardiance
- S/p IV fluid bolus, continued insulin infusion, lower D5 half-normal with 20 KCl at 125 cc an hour
- Continue to monitor and replace electrolytes
- Serial Anion gap monitoring, bicarb improving, patient not ready for transition to subcu insulin yet
- healthcare educator nurse consult
#2. Influenza A with RLL Pneumonia
- Await MRSA screen, blood cultures.
- Continue Tamiflu. Patient was not vaccinated for Infuenza.
- Continue ceftriaxone, doxycycline for empiric treatment for community-acquired pneumonia.
Other medical diagnoses:
- H/o VT, s/p AICD on Sotalol. Monitor K and Mg closely.
- HTN
DVT prophylaxis with subcu Lovenox.
Critical Care time 60 mins -- The patient is admitted for acute critical illness for the treatment of vital organ failure and/or prevention of further life-threatening conditions. Total care includes time spent in review of history, physical exam,
medications, hemodynamic/ventilator parameters, laboratory data, imaging and discussion with house staff, pharmacy, respiratory therapy, landfill attendant, and nursing.
Data:
CXR 06/2025: Increased right basilar airspace opacities suggestive of worsening right basilar pneumonia.
ECHO 07/2023: Normal LV size and systolic function with no regional wall motion abnormalities.
Estimated EF of 60-65%. No LVH. Normal diastolic function. Normal right ventricular size and function. No significant valvular disease.
Estimated pulmonary artery pressure of 19 mmHg, assuming a right atrial pressure of 3 mmHg.
[2025-06-27 10:10] LABS: Glucose - Point of Care 161 mg/dl (70-99)
[2025-06-27] MEDS: SODIUM PHOSPHATE 255 MEQ IV (10:55)
[2025-06-27 11:08] LABS: Glucose - Point of Care 155 mg/dl (70-99)
[2025-06-27 11:59] LABS: Glycohemoglobin (HgbA1c) 7.4 % (4.0-5.9)
[2025-06-27 12:10] LABS: Glucose - Point of Care 168 mg/dl (70-99)
[2025-06-27 12:40] LABS: Blood Urea Nitrogen 12 mg/dl (7-17); Calcium 8.6 mg/dl (8.4-10.2); Carbon Dioxide 17 mmol/L (22-30); Chloride 114 mmol/L (98-107); Estimated Creatinine Clearance 68 ml/min; Glucose 169 mg/dl (70-99); Potassium 3.6 mmol/L (3.5-5.1); Sodium 137 mmol/L (135-145); eGFR > 60.00
[2025-06-27 13:07] LABS: Glucose - Point of Care 158 mg/dl (70-99)
[2025-06-27 14:10] LABS: Glucose - Point of Care 166 mg/dl (70-99)
[2025-06-27] MEDS: LANTUS 0.12 UNITS SC (14:33)
[2025-06-27 15:08] LABS: Glucose - Point of Care 166 mg/dl (70-99)
--- NOTE | 2025-06-27 15:44 | PTCARENOTE ---
1430-12units SQ Lantus given. 1530 Insulin gtts dc'd. Pt OOB to chair, tati done. Chikis owusu'margy. Pt instructed on use of incentive spirometry, demonstrated use correctly. IS-1500ml. Menu given to pt and instructed to order dinner and aware to
call for blood sugar check prior to eating. at bedside.
[2025-06-27 16:46] LABS: Glucose - Point of Care 133 mg/dl (70-99)
[2025-06-27] MEDS: LOVENOX 40 MG SC (17:40)
--- NOTE | 2025-06-27 17:46 | PTCARENOTE ---
Pt ate ~75% dinner tray, tolerated well. Pt ambulated to bathroom with standby supervision. Voided and brushed teeth at sink. Pt back to bed at this time. and daughter at bedside. Pt and family updated on plan of care.
[2025-06-27] MEDS: TAMIFLU 75 MG PO (19:52)
--- NOTE | 2025-06-27 20:00 | PTCARENOTE ---
Rec'd pt resting in bed, assisted to bathroom prn, strength good, oriented, cooperative, BP stable, + pulses, skin warm/dry, RA, ,lungs crackles in bases, sat 98, moist NPC, enc to use IS- reaches 1250, + bowel sounds, abd soft, no n/v, voiding in
bathroom w/o difficulty
[2025-06-27 21:11] LABS: Glucose - Point of Care 143 mg/dl (70-99)
[2025-06-27] MEDS: LIPITOR 40 MG PO (21:11)
[2025-06-27] MEDS: ZETIA 10 MG PO (21:12)
[2025-06-28] VITALS: BP 105/58
[2025-06-28 03:40] VITALS: BMI 25.3
[2025-06-28 04:00] VITALS: BP 101/61
[2025-06-28 04:12] LABS: Blood Urea Nitrogen 12 mg/dl (7-17); Calcium 8.8 mg/dl (8.4-10.2); Carbon Dioxide 16 mmol/L (22-30); Chloride 113 mmol/L (98-107); Estimated Creatinine Clearance 68 ml/min; Glucose 131 mg/dl (70-99); Potassium 3.5 mmol/L (3.5-5.1); Sodium 139 mmol/L (135-145); eGFR > 60.00
[2025-06-28 04:19] LABS: Hematocrit 36.1 % (37.0-47.0); Hemoglobin 12.5 g/dL (12.0-16.0); Mean Corp Hgb Conc. 34.6 g/dL (33.0-37.0); Mean Corpuscular Volume 90.3 fL (81.0-99.0); Platelet Count 157 10^3/uL (130-400); Red Cell Dist. Width 13.4 % (11.5-14.5)
[2025-06-28 07:03] VITALS: BP 146/69
[2025-06-28 07:03] LABS: Glucose - Point of Care 126 mg/dl (70-99)
--- NOTE | 2025-06-28 07:05 | PTCARENOTE ---
Pt in Droplet Isolation. She is very pleasant. C/O nausea. Will administer Reglan. Moist productive cough. Scattered rhonchi posteriorly. No SOB. +Runny nose. +BSX4. Good peripheral pulses. No edema. Discussed the plan of care for the day, use of
call mcdonald and that she is able to ambulate in the room. She verbalized her understanding, safe environment maintained. Right FA IV's both flushed and patent.
--- NOTE | 2025-06-28 07:23 | W.PN.HOSP.TC ---
Today's Communication/Plan
-
d/c home today
Resume home diabetic management
Complete total 5 days of Tamiflu, doxycycline and Omnicef
Assessment / Plan
Assessment / Plan
75-year-old F with a history of ozu-qyraywl-hburwmvxq diabetes who is currently on metformin, empagliflozin and Ozempic outpatient, history of VT status post PPM AICD presented after having 4 days of flu like symptoms and was diagnosed with
influenza and pneumonia on 06/26 by pcp.
#DKA Likely secondary to Influenza/PNA infection, diabetes and on empagliflozin
- Gap of 26 on arrival, BHB of 8.76, urine with ketones
- It is possible that there was a secondary non-anion gap acid base imbalance; we do not have ABG to confirm that
- diabetic diet
- A1c of 7.4
- 2 bmp's showed that the gap closed with blood sugar of less than 200 and bicarb of more than 15 now; stop insulin gtt.
- Patient received 29 units from the insulin gtt. ; s/p Lantus 12 units after discontinuing the insulin drip on 06/27
- ISS while in hospital
- diabetes management nurse practitioner continued home medications
#Sepsis with Influenza A and RLL pneumonia
#Leukocytosis; can also be secondary to DKA ; resolved
- Blood cultures pending
- Continue with IV ceftriaxone and p.o. doxy for now ; switch to omnicef and doxy to complete total 5 days
- Increased Tamiflu to regular dose of 75 mg twice daily ; compelet 5 days
- Supportive measures with pain control antipyretics and antiemetics
- Encourage use of incentive spirometer
CXR 06/27/2025: Increased right basilar airspace opacities suggestive of worsening right basilar pneumonia.
#Arrhythmia�history of nonsustained VT status post PPM AICD currently in normal sinus rhythm
- Continue sotalol 80 mg twice daily
# Hyperlipidemia
- Continue home atorvastatin 40 mg at bedtime
- Continue home Zetia 10 mg at bedtime
DVT prophylaxis�Lovenox subcu
CODE STATUS�full code
Anticipated Discharge: Today
Subjective/Interval History
-
Date of Service: June 28, 2025
Afvss. Offers no new complaints. States that she is feeling great
Objective Data
-
Labs:
Laboratory Results
06/28/25
03:38
WBC 6.6
Hgb 12.5
Hct 36.1 L
Plt Count 157
Sodium 139
Potassium 3.5
Chloride 113 H
Carbon Dioxide 16 L
BUN 12
Creatinine 0.5 L
Glucose 131 H
Calcium 8.8
Vital Signs:
Vital Signs
Temp Pulse Resp BP Pulse Ox
97.6 F 72 18 146/69 96
06/28/25 07:03 06/28/25 07:03 06/28/25 07:03 06/28/25 07:03 06/28/25 07:03
I&O
06/27/25 06/28/25 06/29/25
06:59 06:59 06:59
Intake Total 2017 1892 / 189
Output Total 850 / 850 800 / 800
Balance 1168 / 1370 1092 / 1092
Review of Systems
-
History Source: Patient and Family
Constitutional: Denies Fever
Respiratory: Reports Cough; Denies Trouble Breathing or Pleurisy
Cardiac: Denies Chest Pain
Abdomen/GI: Denies Abdominal Pain
Neuro: Reports No Symptoms
Physical Exam
-
General: Well Developed and No Apparent Distress
HEENT: Normocephalic
Respiratory: Crackles (Mild) and Non Labored Respirations
Cardiac: Regular Rhythm and S1/S2
GI: Soft and Nontender
Skin: Warm
Neuro: Awake, Alert and Oriented
Psych: Calm
Data Reviewed
-
Labs: Labs Reviewed by me, Discussed with Physician and Discussed with Patient
[2025-06-28] MEDS: REGLAN 10 MG IV (08:36)
[2025-06-28] MEDS: STERILE WATER FOR INJECTION 10 ML IV (08:36)
[2025-06-28] MEDS: ROCEPHIN 1000 MG IV (08:36)
[2025-06-28] MEDS: BETAPACE 80 MG PO (08:37)
[2025-06-28] MEDS: LOW STRENGTH ASPIRIN 81 MG PO (08:38)
[2025-06-28] MEDS: VIBRAMYCIN 100 MG PO (08:38)
[2025-06-28] MEDS: TAMIFLU 75 MG PO (08:39)
--- NOTE | 2025-06-28 08:39 | PN.DE.MGMTRT ---
Insulin Management
- -
06/28/2025: Diabetes Management Consult
75 year old female with PMH: Nonsustained VT s/p AICD, HTN, HLD, and T2DM who presents to the ER for evaluation for flulike symptoms.
Patient had recently returned from to the [facility] and began to have symptoms about 4 days ago. Symptoms worsened over the last 2 days with vomiting weakness, fevers and cough, and unable to keep anything down. She was seen by PCP and tested
positive for flu. OP x-ray showed a RLL opacity consistent with PNA. She was prescribed cefuroxime but took 1 dose and continued to have exertional dyspnea.
On arrival in the ER she had abnormal labs with Anion gap of 26 and Beta-hydroxybutyrate of 8.7, consistent with DKA. She was admitted to the ICU for DKA management. A1C 7.4%, Cr0.5, eGFR >60
Pt awake, alert, oriented, offers no complaints, eager to go home today. Able to discuss diabetes care plan.
Her GAP closed and was transitioned off insulin infusion yesterday to corrective insulin only.
Her glucose remained stable off the drip in range of 133 to 166, FBG this morning was 131 V, 126 POC
Will resume Farxiga 10mg daily and Metformin 500mg BID. Change diet to 1800 jennifer diabetic diet. Cont corrective insulin with meals
Pt has monitor and enough supplies at home.
Diabetes History
- -
Type of Diabetes: 2
Pre-Admission Diabetes Regimen
06/27/25 06/27/25 06/27/25
08:05 11:59 16:00
Creatinine 0.5 L 0.5 L Cancelled
06/27/25 06/28/25
20:00 03:38
Creatinine Cancelled 0.5 L
Lab Results
Hemoglobin A1c 7.4 % (4.0-5.9) H 06/27/25 08:05
Insulin Pump Settings
IP Diabetes Regimen
06/27/25 06/27/25 06/27/25
08:05 09:00 09:59
Glucose 185 H
POC Glucose 172 H 161 H
06/27/25 06/27/25 06/27/25
10:57 11:58 11:59
Glucose 169 H
POC Glucose 155 H 168 H
06/27/25 06/27/25 06/27/25
12:57 13:59 14:56
Glucose
POC Glucose 158 H 166 H 166 H
06/27/25 06/27/25 06/27/25
16:00 16:34 20:00
Glucose Cancelled Cancelled
POC Glucose 133 H
06/27/25 06/28/25 06/28/25
21:10 03:38 07:02
Glucose 131 H
POC Glucose 143 H 126 H
Meal type: Dinner
Amount consumed: 75%
Patient Education
[2025-06-28] MEDS: GLUCOPHAGE XR EXTENDED RELEASE 500 MG PO (09:54)
[2025-06-28] MEDS: FARXIGA 10 MG PO (09:55)
--- NOTE | 2025-06-28 10:30 | PTCARENOTE ---
pt discharged. IV's X2 removed, small gauze dressing applied after hemostasis obtained. All instructions read to the pt and her , they both verbalized their understanding. I stressed that if she her symptoms worsens to come back to the ED.
She verbalized her understanding. Safe environment maintained. Escorted to her car via wheelchair with PCT.
--- NOTE | 2025-06-28 13:09 | CM ---
patient discharge to home
IMM reviiewed. in chart
patient lives in a 2 story home with spouse
PLOF: Independent
Denies DME
Denies VN/rehab
pcp: Dr. Valerio
Pharmacy: [facility]
PLAN: Home, no needs
to transport
--- NOTE | 2025-06-28 13:50 | W.DCSUMMARY ---
Discharge Summary
Discharge Data
Date of Admission: 06/26/25
Date of Discharge: 06/28/25
-
Pending Results: No
Hospital Course
Discharging Physician : Emile Wilson MD ; Woodrow Moscoso MD
Disposition : Home
Primary care physician : Dr. Valerio
Principal Discharge diagnosis : Sepsis with Influenza A and RLL pneumonia,
DKA Likely secondary to Influenza/PNA infection
Chronic Discharge diagnosis : history of nonsustained VT status post PPM AICD, hyperlipidemia
Hospital Course : 75 female with history of diabetes type 2, history of ventricular tachycardia status post AICD chronically on sotalol, who presented to the emergency room for evaluation for flulike symptoms. Patient reports recent trip to "[facility] and developed flulike symptoms about 4 days prior to arrival. Patient developed vomiting and was unable to keep anything down. Patient tested positive for flu as outpatient and subsequently was prescribed cefuroxime for possible right
lower lobe opacity. Patient continued to have dyspnea and presented to emergency room. She was noted to be afebrile but noted to be in diabetic ketoacidosis along with worsening right lower lobe pneumonia. Patient was started on IV fluids,
antibiotics and insulin infusion, followed by admission to ICU.
She was maintained on DKA protocol which included IV fluids as well as insulin drip and Iv ceftriaxone and p.o. Doxycyclin which was later changed to Omnicef and doxycycline was continued.
She was also continued on her Tamiflu which was started at home and was advised to continue after discharged for to complete total of 5 days.
Her hemoglobin A1c was found to be 7.4. Diabetic nurse practitioner was consulted during hospital stay and home regimen was resumed.
She had some leukocytosis on admission however on the day of discharge her WBC count was 6.6, hemoglobin was 12.5.
Blood Glucose 131
At the time of discharge she was medically stable.
Advised to follow-up outpatient with her certified executive chef as well as her family doctor.
Return precautions were reviewed with the patient.
Important imaging findings : Chest x-ray
IMPRESSION:
1. Mild asymmetric ground-glass opacity in the lateral basilar right lower lobe suggesting RIGHT LOWER LOBE PNEUMONIA. Mild subsegmental atelectasis or scarring is considered less likely.
2. Left-sided AICD in place.
Chest x-ray 06/27/2025
IMPRESSION:
Increased right basilar airspace opacities suggestive of worsening right basilar pneumonia.
Procedure findings : EKG: SINUS RHYTHM WITH PREMATURE ATRIAL COMPLEXES
NONSPECIFIC ST ABNORMALITY
Discharge Plan
-
Patient Disposition: Home (Routine Discharge)
Discharge Diagnosis/Procedures: Sepsis with Influenza A and RLL pneumonia,
DKA Likely secondary to Influenza/PNA infection
Condition: Good
Diet: Diabetic, Carb Controlled
Activity: No restrictions and As tolerated
Driving Restrictions: As prior to admission
Bathing Restrictions: None
Referrals:
Arya Valerio DO [Family Provider, Family Practice] - in less than 1 week
Additional Discharge Medication Instructions: please follow up with pcp and your certified executive chef in 1 week
please take cefdinir 1 tablet twice daily starting 06/29/25 for 3 day.
take doxycycline 1 tablet with first home dose on 06/28/25 evening
please complete tamiflu 5 day course
Prescriptions:
New
doxycycline hyclate 100 mg Capsule
100 mg PO Q12 Qty: 7 0RF
oseltamivir 75 mg Capsule
75 mg PO BID Qty: 8 0RF
cefdinir 300 mg capsule
300 mg PO Q12H Qty: 6 0RF
Continued
atorvastatin 40 mg Tablet
40 mg PO HS
progesterone micronized 200 mg Capsule
200 mg PO HS
ezetimibe 10 mg Tablet
10 mg PO HS
cholecalciferol (vitamin D3) [Vitamin D3] 125 mcg (5,000 unit) Tablet
250 mcg PO DAILY
coQ10 (ubiquinol) 100 mg Capsule
100 mg PO DAILY
Ozempic 1 mg/dose (4 mg/3 mL) Pen Injector
1 mg SC RUSHING
Gluco Trust
1 tab PO HS
Jardiance 25 mg Tablet
25 mg PO DAILY
prasterone (DHEA) [DHEA] 25 mg Capsule
25 mg PO DAILY
docusate sodium [Colace] 100 mg Capsule
100 mg PO DAILY
aspirin 81 mg Tablet,Chewable
81 mg PO DAILY
sotalol 80 mg tablet
80 mg PO BID
metformin 500 mg tablet extended release 24 hr
500 mg PO DAILY
Discharge Orders:
Discharge Patient (As Directed); Ordered 06/28/25
Ordered By: Emile Wilson
Discharge Date and Time
Discharge Date/Time: 06/28/25 11:51
Print Language: MALAY
== END 2025-06-28 11:51 | disposition home or self-care (01) | DRG 871 ==
LOC: ICU 19:51
PROVIDERS: Emergency Medicine; Physician Assistant; ADMITTING PHYSICIAN Internal Medicine; ATTENDING PHYSICIAN Hospitalist; EMERGENCY PHYSICIAN Emergency Medicine; FAMILY PHYSICIAN Family Medicine; OTHER PHYSICIAN Internal Medicine
PROC: 3E02340 Introduction of Influenza Vaccine into Muscle, Percutaneous Approach (ICD-10-PCS; 2025-06-28)
DX: A41.89 Other specified sepsis (principal); E11.10 Type 2 diabetes mellitus with ketoacidosis without coma; J18.9 Pneumonia, unspecified organism; J10.00 Influenza due to other identified influenza virus with unspecified type of pneumonia; R65.20 Severe sepsis without septic shock; Z79.4 Long term (current) use of insulin; Z79.82 Long term (current) use of aspirin; Z79.899 Other long term (current) drug therapy; Z23 Encounter for immunization
CPT/HCPCS: 71045; 80048; 80053; 81003; 81015; 82010; 82040; 82805; 82962; 83036; 83605; 83735; 84100; 84484; 85025; 85027; 85610; 85730; 87040; 87070; 87502; 87811; 93005; 96361; 96365; 96366; 96375; 99291

== ENCOUNTER → 2025-06-30 08:06 | Outpatient (REF) | payer OTHER, SELFPAY ==
[2025-06-30 10:07] LABS: ALT (SGPT) 14 U/L (0-35); AST (SGOT) 23 U/L (14-36); Albumin 3.7 g/dl (3.5-5.0); Alkaline Phosphatase 111 U/L (38-126); Blood Urea Nitrogen 13 mg/dl (7-17); Calcium 9.5 mg/dl (8.4-10.2); Carbon Dioxide 25 mmol/L (22-30); Chloride 105 mmol/L (98-107); Glucose 143 mg/dl (70-99); Potassium 3.8 mmol/L (3.5-5.1); Sodium 140 mmol/L (135-145); Total Protein 6.7 g/dl (6.3-8.2); eGFR > 60.00
== END ==
LOC: RAD 08:06
PROVIDERS: ATTENDING PHYSICIAN Family Medicine
DX: E87.20 Acidosis, unspecified (principal); J18.1 Lobar pneumonia, unspecified organism
CPT/HCPCS: 36415; 71046; 80053